=== PATIENT | female | born 1955 | race Two or more races ===

== ENCOUNTER → 2024-09-03 | Outpatient (CLI) | payer MEDICARE, MEDICAID, SELFPAY ==
[2024-09-03 09:17] LABS: Basophils % (Auto) 1 % (0-2.5); Eosinophils # (Auto) 0.2 Thou/mm3 (0.0-0.5); Eosinophils % (Auto) 3 % (0-10); Hematocrit 41.6 % (36.0-46.0); Hemoglobin 13.7 g/dL (12.0-16.0); Immature Granulocytes % (Auto) 0 % (0-0); Immature Granulocytes Auto 0.01 Thou/mm3 (0.00-0.00); Lymphocytes % (Auto) 33 % (10-50); Mean Corpuscular HGB Conc 32.9 g/dl (31.0-37.0); Mean Corpuscular Hemoglobin 31.9 pg (25.0-35.0); Mean Corpuscular Volume 97 fL (80-100); Monocytes # (Auto) 0.4 Thou/mm3 (0.0-0.8); Monocytes % (Auto) 7 % (0-12); Neutrophils # (Auto) 3.5 Thou/mm3 (1.8-7.7); Neutrophils % (Auto) 57 % (37-80); Nucleated Red Blood Cell % 0 /100 WBC (0); Platelet Count 213 Thou/mm3 (140-440); RDW Standard Deviation 46.3 fL (36.4-46.3); Red Blood Count 4.29 Miln/mm3 (4.00-5.20); White Blood Count 6.1 Thou/mm3 (3.6-11.0)
[2024-09-03 09:23] LABS: Partial Thromboplastin Time 24.7 Seconds (22.0-36.0); Prothrombin Time 10.6 Seconds (9.0-12.2)
[2024-09-03 09:33] LABS: Anion Gap 3 (7-16); BUN/Creatinine Ratio 13 Ratio (12-20); Blood Urea Nitrogen 13 mg/dL (9-23); Calcium 9.4 mg/dL (8.3-10.6); Carbon Dioxide 30.8 mMol/L (20.0-31.0); Chloride 107 mMol/L (98-107); Glucose 136 mg/dL (74-106); Osmolality,Calculated 283 (275-295); Potassium 4.5 mMol/L (3.4-5.1); Sodium 141 mMol/L (136-145); eGFR > 60 See Note
== END | disposition home or self-care (01) ==
LOC: COPL 08:36
PROVIDERS: PCP Family Medicine; Referring Provider Internal Medicine; Visit Provider Internal Medicine
DX: I25.10 Atherosclerotic heart disease of native coronary artery without angina pectoris (principal); I48.91 Unspecified atrial fibrillation
CPT/HCPCS: 36415; 80048; 85025; 85610; 85730

== ENCOUNTER 2025-06-23 12:00 | Day surgery (SDC) | payer MEDICARE, MEDICAID, SELFPAY ==
[2025-06-23] VITALS (9 sets, daily range): BP systolic 112–160; BP diastolic 59–101; PULSE 60–90; RESP 13–117; TEMP 36.8–37; O2SAT 95–99; BMI 27.1
[2025-06-23] MEDS: RINGERS LACTATED 1000 ML 1,000 ML 100 ML IV (13:25)
[2025-06-23] MEDS: fentaNYL CIT INJ 50 mCg/ML AMP 2ML (ASD USE ONLY) IVP (13:34)
[2025-06-23] MEDS: MIDAZOLAM INJ 1 MG/ML VIAL 2 ML (ASD USE ONLY) 2 MG IVP (13:34)
--- NOTE | 2025-06-23 13:48 | SUR.PHASEII ---
PT ARRIVED TO PACU, REPORT RECEIVED FROM MENA MARSHALL. PT ABLE TO RESPONDS TO VERBAL INSTRUCTIONS AND DRIFTED BACK TO SLEEP. NO ACUTE DISTRESS NOTED.
== END 2025-06-23 14:27 | disposition home or self-care (01) ==
PROVIDERS: PCP Family Medicine; Referring Provider Surgery; Visit Provider Surgery
PROC: 0DBE8ZX Excision of Large Intestine, Via Natural or Artificial Opening Endoscopic, Diagnostic (ICD-10-PCS; CPT 45380; principal; 2025-06-23 13:00)
DX: Z12.11 Encounter for screening for malignant neoplasm of colon (principal)
CPT/HCPCS: G0121; A4649; J2250; J3010; J7120

== ENCOUNTER → 2025-08-04 | Outpatient (CLI) | payer MEDICARE, MEDICAID, SELFPAY ==
--- NOTE | 2025-08-04 09:37 | XR_ITS ---
EXAMINATION: Gastrografin enema with KUB Fluoroscopy 15 spot fluoroscopic films of the colon AP, RPO, LPO, angled up LPO overhead films obtained Date and time: August 04, 2025, 1054 hours INDICATIONS: Incomplete colonoscopy TECHNIQUE AND FINDINGS: Orthopedic Nurse film demonstrates nonobstructive bowel gas pattern Colon filled in retrograde manner to the cecum with reflux into terminal ileum No constricting colonic lesion No rectal or other ulcerations Fluoroscopy 0.3-minute radiation dose 23.60 mGy 15 spot fluoroscopic films of the colon Mucosal detail appears satisfactory IMPRESSION: No colonic lesion identified
== END | disposition home or self-care (01) ==
PROVIDERS: PCP Surgery; Referring Provider Surgery; Visit Provider Surgery
DX: Z12.11 Encounter for screening for malignant neoplasm of colon (principal)
CPT/HCPCS: 74280; Q9963